=== PATIENT | male | born 1940 | race Caucasian/White ===

== ENCOUNTER 2022-03-26 08:15 | Outpatient (CLI) | payer MEDICARE, SELFPAY ==
--- NOTE | 2022-03-26 08:36 | MR_ITS ---
WS: [id number] MRI NECK WITH CONTRAST TECHNIQUE: Noncontrast axial T1, axial T2 FSE fat sat, coronal T2 fat sat, coronal T1, coronal T1 fat sat, sagittal T2 fat sat, plus contrast enhanced coronal, sagittal, and axial T1 fat sat images obta ined. CLINICAL INFORMATION: OTHER DISORDERS OF ORBIT COMPARISON: None. 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 This measures approximately 10.7 x 10.0 x 8.1 mm. Additional enhancement wit h dural thickening extends along the mesial LEFT temporal lobe and enhancement extends along the maxi llary division of the 5th cranial nerve. This extends into foramen rotundum this extends into the inf erior orbital fissure. Enhancement involving the infraorbital nerve portion in the floor the orbit. E nhancement also extends along CNV3 into foramen ovale No evidence of restricted diffusion to suggest acute ischemia. Ventricular system and basal cisterns are patent. Mild small vessel changes. Mild parenchymal volume loss. Normal posterior fossa. Normal v ascular flow voids at the skull base. No extra-axial fluid collections. Mild mucosal thickening in th e paranasal sinuses. Small amount of fluid in the maxillary sinuses. Mastoid air cells well aerated. Normal posterior nasopharynx. Normal parapharyngeal fat. T2 hyperintense lesion in the anterior pituitary. No enhancement. Correlation with pituitary function studies. 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 This measures 5 x 6 mm. Mild symmetric atrophy temporal lobes and hippocampal formations. Proximal 7th and 8th cranial nerves are normal in appearance. Orbits are otherwise normal in appearance. Normal rectus muscles. Normal v isualized optic nerves. No evidence of optic neuritis. No optic nerve edema. Optic nerve sheath is no rmal in appearance. MR/MR orbit face neck wo/w* [id number] IMPRESSION: 1. 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 Associated enhancement extends into the maxillary division of the 5th cranial nerve CNV2. Enhancement extends along CNV3 into foramen ovale. This involves foramen rotundum extends into the floor the orbit through the inferior orbital fissure. 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 Recommend neurosurgery consultation. 2. Mild small vessel changes with moderate parenchymal volume loss. 3. Mild paranasal sinusitis with fluid in the maxillary sinuses. Mastoid air c ells are well aerated. 4. Proximal 7th and 8th cranial nerves are normal in appearance. No evidence o f enhancing IAC or CP angle mass. 5. T2 hyperintense lesion in the anterior pituitary. No enhancement. Correlati on with pituitary function studies. 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 This measures 5 x 6 mm.
[2022-03-26] MEDS: gadobenate dimeglumine 20 mL vial IV (10:14)
== END 2022-03-26 08:16 | disposition home or self-care (01) ==
PROVIDERS: PCP Ophthalmology; Visit Provider Ophthalmology
DX: H05.89 Other disorders of orbit (principal); J32.0 Chronic maxillary sinusitis
CPT/HCPCS: 70543; A9577